=== PATIENT | female | born 1980 | race Two or more races ===

== ENCOUNTER 2016-07-29 20:03 | Emergency (ER) | payer SELFPAY | END 2016-07-29 22:30 | disposition left against medical advice (07) | LOC: ER 22:08 | DX: O20.0 Threatened abortion (principal); Z3A.00 Weeks of gestation of pregnancy not specified; Z53.21 Procedure and treatment not carried out due to patient leaving prior to being seen by health care provider ==

== ENCOUNTER 2016-07-30 00:02 | Emergency (ER) | payer SELFPAY ==
[~2016-07-30] VITALS: Ht 157.5 cm; Wt 70.0 kg
[2016-07-30] MEDS ORDERED: ACETAMINOPHEN 500MG TABLET PO ONE (04:00)
[2016-07-30 04:19] LABS: BASOPHILS % 0.7 % (0.0-2.0); EOSINOPHILS % 9.5 % (0.0-5.0); HEMATOCRIT. 35.8 % (36.0-48.0); HEMOGLOBIN. 11.9 g/dL (12.0-16.0); LYMPHOCYTES % 24.5 % (20.0-50.0); MEAN CORPUSCULAR HEMOGLOBIN 28.6 pg (28.0-32.0); MEAN CORPUSCULAR VOLUME 86.2 fL (81.0-99.0); MEAN PLATELET VOLUME 10.9 fl (7.4-10.4); MONOCYTES % 5.6 % (2.0-8.0); NEUTROPHILS % 59.7 % (40.0-76.0); PLATELET 164 x1000/uL (130-400); RED BLOOD CELL COUNT 4.15 mill/uL (4.2-5.4); RED CELL DISTRIBUTION WIDTH 12.9 % (11.6-14.6)
[2016-07-30 04:38] LABS: CARBON DIOXIDE 25 mEq/L (21-32); CHLORIDE 108 mEq/L (98-107)
[2016-07-30 04:47] LABS: B-HCG QUANTITATIVE 1898 mIU/mL (<3)
[2016-07-30 06:38] VITALS: BP 102/67
== END 2016-07-30 06:39 | disposition home or self-care (01) ==
LOC: ER 00:02
DX: O20.0 Threatened abortion (principal); Z3A.01 Less than 8 weeks gestation of pregnancy
CPT/HCPCS: 36415; 76801; 80048; 81025; 84702; 85025; 99285

== ENCOUNTER 2016-08-01 05:58 | Emergency (ER) | payer SELFPAY ==
[~2016-08-01] VITALS: Ht 157.5 cm; Wt 68.0 kg
[2016-08-01 06:24] VITALS: BP 112/66
== END 2016-08-01 08:47 | disposition home or self-care (01) ==
LOC: ER 08:26
DX: O03.9 Complete or unspecified spontaneous abortion without complication (principal); Z3A.01 Less than 8 weeks gestation of pregnancy
CPT/HCPCS: 36415; 84702; 99283

== ENCOUNTER 2016-08-16 04:39 | Emergency (ER) | payer SELFPAY ==
[~2016-08-16] VITALS: Ht 165.1 cm; Wt 68.0 kg
[2016-08-16] MEDS ORDERED: ACETAMINOPHEN 325MG TABLET PO STA (07:25)
[2016-08-16 07:50] LABS: BASOPHILS % 0.5 % (0.0-2.0); EOSINOPHILS % 9.1 % (0.0-5.0); HEMATOCRIT. 34.4 % (36.0-48.0); HEMOGLOBIN. 11.4 g/dL (12.0-16.0); LYMPHOCYTES % 21.4 % (20.0-50.0); MEAN CORPUSCULAR HEMOGLOBIN 28.7 pg (28.0-32.0); MEAN CORPUSCULAR VOLUME 86.6 fL (81.0-99.0); MONOCYTES % 5.4 % (2.0-8.0); NEUTROPHILS % 63.6 % (40.0-76.0); PLATELET 148 x1000/uL (130-400); RED BLOOD CELL COUNT 3.98 mill/uL (4.2-5.4); RED CELL DISTRIBUTION WIDTH 13.5 % (11.6-14.6)
[2016-08-16 08:04] LABS: CLARITY URINE CLEAR (CLEAR); COLOR URINE YELLOW (YELLOW); GLUCOSE URINE NEGATIVE (NEGATIVE); PH URINE 5.5 (4.5-8.0); PROTEIN URINE NEGATIVE (NEGATIVE); SPECIFIC GRAVITY URINE 1.005 (1.005-1.030)
[2016-08-16 08:05] LABS: CARBON DIOXIDE 28 mEq/L (21-32); CHLORIDE 108 mEq/L (98-107)
[2016-08-16 08:05] LABS: KETONES URINE NEGATIVE (NEGATIVE); LEUKOCYTE ESTERASE URINE NEGATIVE (NEGATIVE); NITRITE URINE NEGATIVE (NEGATIVE); OCCULT BLOOD URINE NEGATIVE (NEGATIVE); UROBILINOGEN URINE 0.2 E.U./dL (0.2-1.0)
[2016-08-16 08:08] LABS: B-HCG QUANTITATIVE 7 mIU/mL (<3)
[2016-08-16 08:44] LABS: HCG SCREEN POSITIVE
[2016-08-16 09:42] VITALS: BP 119/87
== END 2016-08-16 10:50 | disposition home or self-care (01) ==
LOC: ER 07:49
DX: O03.9 Complete or unspecified spontaneous abortion without complication (principal)
CPT/HCPCS: 36415; 76830; 76856; 80053; 81003; 84702; 84703; 85025; 99285

== ENCOUNTER 2023-05-27 09:53 | Emergency (ER) | payer MEDICAID ==
[~2023-05-27] VITALS: Ht 157.5 cm; Wt 68.0 kg
[2023-05-27 09:56] VITALS: O2SAT 100
[2023-05-27] MEDS: KETOROLAC 30MG/ML VIAL IM ONE (10:15)
[2023-05-27] MEDS ORDERED: GABA-529 MT (10:26)
[2023-05-27] MEDS ORDERED: IBUP-2030 MT (10:26)
[2023-05-27] MEDS ORDERED: VALA100044 MT (10:26)
[2023-05-27 11:17] VITALS: BP 118/72; PULSE 69; RESP 16; TEMP 98.6
== END 2023-05-27 12:21 | disposition home or self-care (01) ==
LOC: ER 10:15
DX: B02.9 Zoster without complications (principal); Z98.890 Other specified postprocedural states
CPT/HCPCS: 99283; 81025; 96372; J1885